=== PATIENT | male | born 1955 | race Caucasian/White ===

== ENCOUNTER 2017-09-22 10:55 | Outpatient (CLI) | payer BC | END 2017-09-22 10:56 | disposition home or self-care (01) | LOC: NS 10:55 | PROVIDERS: ATTEND Internal Medicine | DX: E11.9 Type 2 diabetes mellitus without complications (principal); Z71.3 Dietary counseling and surveillance; Z79.84 Long term (current) use of oral hypoglycemic drugs; Z68.32 Body mass index [BMI] 32.0-32.9, adult | CPT/HCPCS: 97802 ==

== ENCOUNTER 2017-10-20 10:51 | Outpatient (CLI) | payer BC | END 2017-10-20 10:52 | disposition home or self-care (01) | LOC: NS 10:51 | PROVIDERS: ATTEND Internal Medicine | DX: Z71.3 Dietary counseling and surveillance (principal); E11.9 Type 2 diabetes mellitus without complications; Z68.32 Body mass index [BMI] 32.0-32.9, adult; Z79.84 Long term (current) use of oral hypoglycemic drugs | CPT/HCPCS: 97803 ==

== ENCOUNTER 2017-12-08 11:00 | Outpatient (CLI) | payer BC | END 2017-12-08 11:01 | disposition home or self-care (01) | LOC: NS 11:00 | PROVIDERS: ATTEND Internal Medicine | DX: Z71.3 Dietary counseling and surveillance (principal); E11.9 Type 2 diabetes mellitus without complications; Z79.84 Long term (current) use of oral hypoglycemic drugs; Z68.32 Body mass index [BMI] 32.0-32.9, adult | CPT/HCPCS: 97803 ==

== ENCOUNTER 2020-04-28 13:43 | Outpatient (CLI) | payer MEDICARE ==
[2020-04-28 14:37] VITALS: BP 132/81
--- NOTE | 2020-04-28 14:37 | SLEEP CARE CONSULTATION ---
Information from patient questionnaire entered by Nena Gutierrez. I have reviewed and concur with the information entered by Nena Gutierrez. This document represents the service I personally performed and the decisions made by me, Merle Valencia ARNP. History of Present Illness Service Date and Time: 04/28/2020 1343 Reason for Visit: New patient, Previously diagnosed sleep apnea, sleep apnea on CPAP therapy Chief Complaint: reports: Other (Try to improve my use of the CPAP machine) Date of Onset: 10 years Usual bedtime: 11 pm Time it takes to fall asleep: 15 minutes Snores at night: Yes Observed to quit breathing while asleep: Yes Sleeps alone due to snoring: No Number of times waking at night: 1-2 Reasons for waking at night: reports: Other (unknown reason). denies: Choking, Snoring, Gasping for air Toss, Turn, or Twitch while sleeping: No Recalls having dreams: Yes Usually gets out of bed at: 7:30 am Feels refreshed in the morning: Yes Morning headache: No Sleepy or fatigued during the day: No Ever fallen asleep while driving: Yes Takes day naps: No Dreams during day naps: No Prior sleep studies: Yes Year and Where: [facility] in [place], [place] Additional HPI information: MADONNA PORTILLO was diagnosed to have unknown, obstructive sleep apnea-hypopnea syndrome about 10 years ago and is on CPAP therapy comes in today for initial appointment. He states that he had a similar sleep appointment (like today) in [facility] about 3 years ago. His original study was 10 years ago at [facility] in [place], [place]. He states they did two studies and set him up on CPAP therapy. - Parasomnia Symptoms Ever been unable to move upon waking from sleep: No Walks in sleep: No Talks in sleep: No Ever acted out dreams in sleep: No Ever felt weak in the knees when startled or emotional: No Bothered by creepy, crawly, restless sensations in legs: No Problems with memory or concentration: No CPAP Compliance Data - Data Reviewed with Patient Average duration of nightly device use: 5.7 Compliance rate %: 85 (180 days) Current pressure setting (cmH2O): 13-17 Average residual AHI: 0.8 Compliance data discussion: He hasn't changed the cushion mask in the last 3 years. He thinks the straps are stretched out and the mask is not sealing well. He uses a full face mask by [employer]. He cleans the mask every evening before using. He last got supplies from a place in [place] called [employer]. Subjective Patient concerns: reports: mask discomfort (not sealing well), air blowing in eyes, mask leak noise. denies: aerophagia, condensation in mask/hose, nasal congestion, dry mouth, nose, throat, epistaxis, other Observed to snore while using device: No Current pressure setting perceived as: comfortable On therapy, patient: reports: sleeping better, awakening more refreshed, being more awake and alert during the day, more rested overall. denies: drowsiness while driving Initial [place] Sleepiness Scale score: 5 (in 2019) Past Medical History Past Medical History: reports: Diabetes, GERD (history, changed his habits and it helped; few OTC Tums). denies: Hypertension, Claustrophobia, Congestive Heart Failure, Stroke, Coronary Heart Disease, Arrythmia, Hypothyroidism, Anemia, Anxiety, Impotence, Depression, Mood disorder, Attention deficit Social History The patient's occupation is a Retired. Patient is Single and lives in [place]. Have you smoked in the past 12 months: No Alcohol use: No Caffeine use: Yes Caffeine amount and frequency: 5 cups per day Family History Family history of sleep disordered breathing: Yes Family Hx Sleep Apnea: Father: Snoring Allergies and Home Medications Drug allergies reviewed: Yes (NKDA) Home medication list reviewed: Yes (Metformin) Review of Systems Weight gain over past 5 years: 19 Weight loss over past 5 years: 32 Cardiovascular: denies: high blood pressure, palpitations, chest pain, irregular heart rate or pulse, leg or foot swelling Respiratory: denies: shortness of breath, chronic cough Gastrointestinal: reports: heartburn. denies: difficulty swallowing Urinary: denies: impotence Neurological: denies: headaches, seizure, head trauma, speech dysfunction, gait or balance problems, fainting or unconsciousness Psychiatric: denies: anxiety, depression, mood disorder, claustrophobia Ear/Nose/Throat: reports: wisdom teeth removed (has two still, uppers). denies: nasal congestion, sinus problems, nose bleeds, dry mouth/throat, hoarseness, tonsillectomy Endocrine: denies: thyroid disease Musculoskeletal: reports: back pain. denies: muscle pain or cramping, mobility problems Immunologic: denies: allergies to food or environment Physical Exam Blood Pressure: 132/81 Cuff size: long Heart Rate: 64 O2 Saturation: 98 Height: 5 ft 11 in Weight: 229 lb Body Mass Index: 31.9 BMI Classification: Obese Neck circumference: 16.5 (inches) HEENT: No craniofacial malformation Nostrils: patent to airflow Turbinates: normal Septum: midline Mouth and throat: narrow oropharynx Soft palate: normal Hard palate: normal Uvula visualization: 50% Mallampati Class II Tongue: normal in size Tonsils: small Chin and jaw: normal size and position Neck: normal w/o lymphadenopathy or thyromegaly Heart: regular rate and rhythm Lungs: clear bilaterally Impression and Plan 1. Obstructive Sleep Apnea-Hypopnea Syndrome, unknown, with good treatment compliance and good apnea control. On CPAP therapy, the patient has better sleep quality and is more rested overall. The patients CPAP is over 5 years old and of reasonable use. Thus, the CPAP will be updated. A DWO prescription will be made. Compliance guidelines for new device and follow up discussed. We do not yet have the patient's original diagnostic study and I explained to patient that we will need a copy of this before his prescription for the new machine can be faxed and process. He may try to bring in a copy or obtain one and bring it into our office. If we are unable to obtain this study we may need to repeat a PSG to verify diagnosis and severity. Patient's apnea severity and rationale for treatment to reduce apnea, improve sleep quality and reduce cardiovascular and cerebrovascular events was reviewed. I also reviewed the benefit of consistent device use of CPAP for diabetes. * Continue auto CPAP pressure at 13-17 cmH2O * Obtain original study with diagnosis and severity. * Notify me if snoring with mask or feeling that the pressure is too much or too little * Attempt to lose weight * Call this office if any problems using CPAP * Return for follow up in 1 month, or sooner if concerns arise Visit Type: In Office Time Spent with Patient (minutes): 36 Provider Statement: I spent 100% of the Face to Face Visit with the patient with greater than 50% spent counseling the patient and coordination of care.
== END 2020-04-28 13:44 | disposition home or self-care (01) ==
LOC: SC 13:43
PROVIDERS: ATTEND Nurse Practitioner Family
DX: G47.33 Obstructive sleep apnea (adult) (pediatric) (principal); E66.9 Obesity, unspecified; Z68.31 Body mass index [BMI] 31.0-31.9, adult
CPT/HCPCS: 99204; G0463; 99212

== ENCOUNTER 2020-09-08 11:41 | Outpatient (CLI) | payer MEDICARE ==
--- NOTE | 2020-09-08 11:56 | SLEEP CARE CONSULTATION ---
Information from patient questionnaire entered by Nena Gutierrez. I have reviewed and concur with the information entered by Nena Gutierrez. This document represents the service I personally performed and the decisions made by , Merle Valencia ARNP. History of Present Illness Service Date and Time: 09/08/2020 1140 Previous diagnosis: Moderate, Obstructive Sleep Apnea-Hypopnea Syndrome AHI: 19.0 (in 2009) Reason for follow up: first compliance after device update Equipment type: CPAP Equipment obtained from: Other ([facility]; getting supplies as needed) Mask style: Full face Mask brand: Resmed Backup mask available: Yes (old mask) Last cushion change: 1 month Prior sleep studies: Yes Year and Where: 2009 - [facility] in [place], [place] Type of Sleep Study: Polysomnography HPI additional information: MADONNA PORTILLO was diagnosed to have moderate, AHI 19.0, obstructive sleep apnea-hypopnea syndrome and returns via Telehealth visit today for CPAP therapy first compliance with update of machine follow-up. CPAP Compliance Data - Data Reviewed with Patient Average duration of nightly device use: 6 hr 19 min Compliance rate %: 93.3 Current pressure setting (cmH2O): 13-17 Humidity settin Heated hose settin Average residual AHI: 1.2 Average large leak: 2 hr 50 min Subjective Patient concerns: denies: aerophagia, mask discomfort, air blowing in eyes, mask leak noise, condensation in mask/hose, nasal congestion, dry mouth, nose, throat, epistaxis, other Observed to snore while using device: No Current pressure setting perceived as: comfortable On therapy, patient: reports: sleeping better, awakening more refreshed, being more awake and alert during the day, more rested overall. denies: drowsiness while driving Initial [place] Sleepiness Scale score: 5 (in 2019) Current [place] Sleepiness Scale score: 1 Allergies and Home Medications Drug allergies reviewed: Yes (NKDA) Home medication list reviewed: No (increased Metformin to 1000 mg twice daily) Review of Systems Review of systems same as previous: Yes (no changes) Physical Exam Vital signs obtained and entered by: Telehealth visit to limit exposure during covid pandemic Height: 5 ft 11 in Impression and Plan 1. Obstructive Sleep Apnea-Hypopnea Syndrome, moderate, with good treatment compliance and good apnea control. On CPAP therapy, the patient has better sleep quality and is more rested overall. He is liking his new machine. It does feel like the pressure is higher at onset of putting mask on initially but he adapts quickly and does not feel the pressure is too much. He has no complaints with the mask. He likes the fit of the new full face mask and has no congestion or dryness issues. He does ask about CPAP assistant surveyor out there and I advised him to follow manufacturers directions for cleaning with mild soap and warm water. I reviewed with him that the FDA has warnings out on the CPAP assistant surveyor and is not yet recommending their use due to limited studies on their safety. Patient's apnea severity and rationale for treatment to reduce apnea, improve sleep quality and reduce cardiovascular and cerebrovascular events was reviewed. I also reviewed the benefit of consistent device use of CPAP for diabetes, and gastric reflux. * Continue autoCPAP pressure at 13-17 cmH2O * Notify me if snoring with mask or feeling that the pressure is too much or too little * Attempt to lose weight * Call this office if any problems using CPAP * Return for follow up in 1 year, or sooner if concerns arise Counseling Topics: Spare mask, Weight loss health impact Visit Type: Telehealth Video Video Type: Doximity Patient Location: Home Location of Provider: Office Patient agrees and consents to this telehealth visit type: Yes Patient agrees to have their insurance billed: Yes Time Spent with Patient (minutes): 15 Provider Statement: I spent 100% of the Telehealth Video Call with the patient with greater than 50% spent counseling the patient and coordination of care.
== END 2020-09-08 11:42 | disposition home or self-care (01) ==
LOC: SC 11:41
PROVIDERS: ATTEND Nurse Practitioner Family
DX: G47.33 Obstructive sleep apnea (adult) (pediatric) (principal)

== ENCOUNTER 2021-12-28 09:30 | Outpatient (CLI) | payer MEDICARE ==
[2021-12-28 15:55] LABS: CALCIUM 9.6 mg/dL (8.5-10.3); CREATININE 0.8 mg/dL (0.6-1.2); POTASSIUM 4.2 mmol/L (3.5-5.0)
[2021-12-28 20:08] LABS: ESTIMATED AVERAGE GLUCOSE 186 mg/dL (70-100); HEMOGLOBIN A1c% 8.1 % (4.27-6.07)
== END 2021-12-28 23:59 | disposition home or self-care (01) ==
LOC: LAB.R 09:30
PROVIDERS: ATTEND Internal Medicine
DX: E11.9 Type 2 diabetes mellitus without complications (principal); Z79.899 Other long term (current) drug therapy
CPT/HCPCS: 80048; 83036

== ENCOUNTER 2022-04-27 16:29 | Outpatient (CLI) | payer MEDICARE ==
--- NOTE | 2022-04-27 14:42 | SLEEP CARE CONSULTATION ---
Information from patient questionnaire entered by Cruz Plasencia. I have reviewed and concur with the information entered by Cruz Plasencia. This document represents the service I personally performed and the decisions made by me, Merle Valencia ARNP. History of Present Illness Service Date and Time: 04/27/2022 1420 Previous diagnosis: Moderate, Obstructive Sleep Apnea-Hypopnea Syndrome AHI: 19.0 (in 2009) Reason for follow up: annual (ANNUAL, LAST SEEN 09/10, DREAMSTATION) Equipment type: CPAP (DREAMSTATION) Equipment obtained from: Other ([facility]; getting supplies as needed) Mask style: Full face Mask brand: Resmed (AirFit F20, large) Backup mask available: Yes (old mask) Last cushion change: 1+ month Prior sleep studies: Yes Year and Where: 2009 - [facility] in [place], [place] Type of Sleep Study: Polysomnography HPI additional information: MADONNA PORTILLO was diagnosed to have moderate, AHI 19.0, obstructive sleep apnea-hypopnea syndrome and returns via video telehealth visit today for CPAP therapy annual follow-up. Sleep Study - Results Type of Sleep Study: Polysomnography Prior sleep studies: Yes Year and Where: 2009 - [facility] in [place], [place] CPAP Compliance Data - Data Reviewed with Patient Average duration of nightly device use: 6 hours, 11 minutes, 22 seconds Compliance rate %: 93.3 (01/25/22 to 04/24/22; 90/90 days) Current pressure setting (cmH2O): 13-17 Average residual AHI: 1.4 Subjective Patient concerns: reports: other (dry skin, sometimes; chafing sometimes). denies: aerophagia, mask discomfort, air blowing in eyes, mask leak noise, condensation in mask/hose, nasal congestion, dry mouth, nose, throat, epistaxis Observed to snore while using device: No Current pressure setting perceived as: comfortable On therapy, patient: reports: sleeping better, awakening more refreshed, being more awake and alert during the day, more rested overall. denies: drowsiness while driving Initial [place] Sleepiness Scale score: 5 (in 2019) Current [place] Sleepiness Scale score: 4 Allergies and Home Medications Known drug allergies: Yes Drug allergies reviewed: Yes (NKDA) Home medication list reviewed: Yes (Metformin 1000mg BID) Allergy and home medication list: Allergies No Known Drug Allergies Allergy (Verified 12/28/12 14:11) Review of Systems Review of systems same as previous: Yes (no changes) Physical Exam Vital signs obtained and entered by: VIA PHONE Height: 5 ft 11 in Weight: 222 lb (pt reported) Body Mass Index: 30.9 BMI Classification: Obese Impression and Plan 1. Obstructive Sleep Apnea-Hypopnea Syndrome, moderate, with good treatment comp liance and good apnea control. On CPAP therapy, the patient has better sleep quality and is more rested overall. Patient has been getting some dry patches of skin and "chafing" around his nose and upper cheeks. I advised him to try a barrier that he can obtain online through either [employer] or [employer]. These barriers can reduce that chafing feeling and he may also use nonoily lotion on his face to help reduce dryness. He voiced understanding and agreement. Patient's apnea severity and rationale for treatment to reduce apnea, improve sleep quality and reduce cardiovascular and cerebrovascular events was reviewed. I also reviewed the benefit of consistent device use of CPAP for diabetes and gastric reflux. 2. Obesity, unspecified. Currently patients BMI is 30.9. Obesity increases the risk of apnea, CPAP pressure requirements and overall health risks especially cardiovascular and diabetes. Thus patient is advised to lose weight. Weight loss can be done with reducing portion size, reducing refined foods and balancing content with vegetables, fruit and whole grain foods. In addition, patient encouraged to get regular exercise. The patient's CPAP pressure range should accommodate some weight loss. Symptoms to report for additional pressure adjustment discussed. * Continue auto CPAP pressure at 13-17 cmH2O * Update supplies * Notify me if snoring with mask or feeling that the pressure is too much or too little * Attempt to lose weight * Call this office if any problems using CPAP * Return for follow up in 1 year, or sooner if concerns arise Counseling Topics: Spare mask, Weight loss health impact Visit Type: Telehealth Video (EMAIL: [email or web address]) Video Type: Doximity Patient Location: Home Location of Provider: Office Patient agrees and consents to this telehealth visit type: Yes Patient agrees to have their insurance billed: Yes Time Spent with Patient (minutes): 20 Provider Statement: I spent 100% of the Telehealth Video Call with the patient with greater than 50% spent counseling the patient and coordination of care.
== END 2022-04-27 16:30 | disposition home or self-care (01) ==
LOC: SC 16:29
PROVIDERS: ATTEND Nurse Practitioner Family
DX: G47.33 Obstructive sleep apnea (adult) (pediatric) (principal); E66.9 Obesity, unspecified; Z68.30 Body mass index [BMI] 30.0-30.9, adult

== ENCOUNTER 2023-09-13 12:06 | Outpatient (CLI) | payer MEDICARE ==
--- NOTE | 2023-09-13 11:58 | SLEEP CARE CONSULTATION ---
Information from patient questionnaire entered by Marilyn David. I have reviewed and concur with the information entered by Marilyn David. This document represents the service I personally performed and the decisions made by me, Merle Valencia ARNP. History of Present Illness Service Date and Time: 09/13/2023 1140 Previous diagnosis: Moderate, Obstructive Sleep Apnea-Hypopnea Syndrome AHI: 19.0 (in 2009) Reason for follow up: annual (LAST SEEN 04/2022) Equipment type: CPAP (DREAMSTATION 2; s/u 07/28/2020) Equipment obtained from: Other ([facility]; getting supplies as ne eded) Mask style: Full face Backup mask available: Yes Last cushion change: few weeks ago Prior sleep studies: Yes Year and Where: 2009 - [facility] in [place], [place] Type of Sleep Study: Polysomnography HPI additional information: MADONNA PORTILLO was diagnosed to have moderate, AHI 19, obstructive sleep apnea- hypopnea syndrome and returns via video appointment today for CPAP therapy annual follow-up. Sleep Study - Results Type of Sleep Study: Polysomnography Prior sleep studies: Yes Year and Where: 2009 - [facility] in [place], [place] CPAP Compliance Data - Data Reviewed with Patient Average duration of nightly device use: 6 HRS 43 MINS 7 SECS Compliance rate %: 97.8 (09/11/2022-09/10/2023; 365/365 days used) Current pressure setting (cmH2O): 13-17 Average residual AHI: 1.3 Central apnea: 0.1 Obstructive apnea: 0.2 Hypopnea: 0.8 Average large leak: 14 mins 14 secs Subjective Patient concerns: reports: other (dry skin where mask touches skin; tried barriers but did not like it). denies: aerophagia, mask discomfort, air blowing in eyes, mask leak noise, condensation in mask/hose, nasal congestion, dry mouth, nose, throat, epistaxis Observed to snore while using device: No Current pressure setting perceived as: comfortable On therapy, patient: reports: sleeping better, awakening more refreshed, being more awake and alert during the day, more rested overall. denies: drowsiness while driving Initial [place] Sleepiness Scale score: 5 (in 2019) Current [place] Sleepiness Scale score: 6 (09/13/23) Allergies and Home Medications Known drug allergies: No Drug allergies reviewed: Yes Home medication list reviewed: Yes (no changes) Allergy and home medication list: Allergies No Known Drug Allergies Allergy (Verified 09/11/23 13:42) Review of Systems Review of systems same as previous: Yes (NO CHANGE) Physical Exam Vital signs obtained and entered by: MARILYN Reynoso MA Height: 5 ft 11 in (PER PT) Weight: 215 lb (PER PT) Weight change since last visit: 7 lb loss Body Mass Index: 29.9 BMI Classification: Overweight Impression and Plan 1. Obstructive Sleep Apnea-Hypopnea Syndrome, moderate, with good treatment compliance and good apnea control. On CPAP therapy, the patient has better sleep quality and is more rested overall. Patient has significant improvement of their sleep apnea and is satisfied with current CPAP therapy. Patient continues to have some skin irritation where the mask touches his face. He says the skin is dry and feels "almost like a sunburn". He tried the barriers that I suggested at his last visit and thinks they did help but says they were a hassle to use. I advised him to try again or we could change the mask style. He says he will try to use the barriers for now. He had no other concerns today. I will update his supply prescription and see him next year. Patient's apnea severity and rationale for treatment to reduce apnea, improve sleep quality and reduce cardiovascular and cerebrovascular events was reviewed. I also reviewed the benefit of consistent device use of CPAP for diabetes and gastric reflux. 2. Overweight, unspecified. Currently patients BMI is 29.9. He has lost weight. Obesity increases the risk of apnea, CPAP pressure requirements and overall health risks especially cardiovascular and diabetes. Thus patient is advised to continue to try to lose weight. * Continue auto CPAP pressure at 13-17 cmH2O * Update supply prescription * Notify me if snoring with mask or feeling that the pressure is too much or too little * Attempt to lose weight * Call this office if any problems using CPAP * Return for follow up in 12 months, or sooner if concerns arise Counseling Topics: Spare mask, Weight loss health impact Prescriptions: Device supplies Follow up with Sleep Care in: 1 year Visit Type: Telehealth Video Video Type: Doximity Patient Location: Home Location of Provider: Office Patient agrees and consents to this telehealth visit type: Yes Patient agrees to have their insurance billed: Yes Time Spent with Patient (minutes): 25 Provider Statement: I spent 100% of the Telehealth Video Call with the patient with greater than 50% spent counseling the patient and coordination of care.
== END 2023-09-13 12:07 | disposition home or self-care (01) ==
LOC: SC 12:06
PROVIDERS: ATTEND Nurse Practitioner Family
DX: G47.33 Obstructive sleep apnea (adult) (pediatric) (principal); E66.3 Overweight; Z68.29 Body mass index [BMI] 29.0-29.9, adult

== ENCOUNTER 2023-09-21 10:25 | Outpatient (CLI) | payer MEDICARE, BC ==
[2023-09-21 10:56] LABS: BASOPHILS % (AUTO) 0.2 %; EOSINOPHILS # (AUTO) 0.2 10^3/uL (0.0-0.7); EOSINOPHILS % (AUTO) 2.1 %; HCT - HEMATOCRIT 42.3 % (42.0-52.0); HGB - HEMOGLOBIN 14.7 g/dL (14.0-18.0); LYMPHOCYTES # (AUTO) 2.2 10^3/uL (1.5-3.5); LYMPHOCYTES % (AUTO) 27.4 %; MEAN CORPUSCULAR HEMOGLOBIN 30.9 pg (27.0-31.0); MEAN CORPUSCULAR HGB CONC 34.8 g/dL (32.0-36.0); MEAN CORPUSCULAR VOLUME 88.9 fL (80.0-94.0); MEAN PLATELET VOLUME 8.7 fL (7.4-11.4); MONOCYTES # (AUTO) 0.5 10^3/uL (0.0-1.0); NEUTROPHILS # (AUTO) 5.2 10^3/uL (1.5-6.6); NEUTROPHILS % (AUTO) 64.1 %; PLT - PLATELET COUNT 229 10^3/uL (130-450); RED BLOOD COUNT 4.76 10^6/uL (4.70-6.10); RED CELL DISTRIBUTION WIDTH 13.2 % (12.0-15.0); WHITE BLOOD COUNT 8.2 x10^3/uL (4.8-10.8)
[2023-09-21 11:20] LABS: ALBUMIN 4.4 g/dL (3.2-5.5); ALBUMIN/GLOBULIN RATIO 1.7 (1.0-2.2); ALKALINE PHOSPHATASE 57 IU/L (42-121); ALT ALANINE AMINOTRANSFERASE 28 IU/L (10-60); AST ASPARTATE AMINOTRANSFERASE 18 IU/L (10-42); BILIRUBIN,TOTAL 0.4 mg/dL (0.2-1.0); BUN - BLOOD UREA NITROGEN 15 mg/dL (6-20); CALCIUM 9.2 mg/dL (8.5-10.3); CARBON DIOXIDE - CO2 22 mmol/L (21-32); CHLORIDE 107 mmol/L (101-111); CHOL/HDL RATIO 3.7 (<5.0); CHOLESTEROL 170 mg/dL; CREATININE 0.8 mg/dL (0.6-1.3); GFR - MDRD 96 (>89); GLUCOSE 216 mg/dL (74-104); HDL CHOLESTEROL 46 mg/dL; LDL CHOLESTEROL,CALCULATED 84 mg/dL; LDL/HDL RATIO 1.8 (<3.6); POTASSIUM 4.2 mmol/L (3.5-4.5); SODIUM 137 mmol/L (135-145); TRIGLYCERIDES 200 mg/dL (48-352); VLDL CHOLESTEROL 40 mg/dL
[2023-09-21 11:27] LABS: CREATININE,URINE 112.5 mg/dL; MICROALBUM/CREATININE RATIO,UR 37.3 ug/mg (<30.0); MICROALBUMIN,URINE 4.2 mg/dL
[2023-09-21 11:32] LABS: THYROID STIMULATING HORMONE 1.23 uIU/mL (0.34-5.60)
[2023-09-21 11:36] LABS: ESTIMATED AVERAGE GLUCOSE 206 mg/dL (70-100); HEMOGLOBIN A1c% 8.8 % (4.27-6.07)
[2023-09-21 11:57] LABS: PSA TOTAL 1.566 ng/mL (0.000-2.000)
== END 2023-09-21 10:26 | disposition home or self-care (01) ==
LOC: LAB 10:25
PROVIDERS: ATTEND Internal Medicine
DX: Z00.00 Encounter for general adult medical examination without abnormal findings (principal); C67.9 Malignant neoplasm of bladder, unspecified; E11.9 Type 2 diabetes mellitus without complications; E78.5 Hyperlipidemia, unspecified; Z79.899 Other long term (current) drug therapy
CPT/HCPCS: 36415; 80053; 80061; 82043; 82570; 82607; 83036; 83721; 84153; 84443; 85025

== ENCOUNTER 2023-10-03 12:50 | Outpatient (CLI) | payer MEDICARE, BC ==
[2023-10-03] MEDS ORDERED: iohexoL-300 100 ML VIAL ONE (13:04)
[2023-10-03] MEDS: iohexoL-300 100 ML VIAL IVP ONE (13:29)
--- NOTE | 2023-10-03 15:45 | CT Report ---
PROCEDURE: IVP INDICATIONS: HIST OF BLADDER CA CONTRAST: Omni 300 140ml TECHNIQUE: A [address] of the abdomen and pelvis was performed. Non-contrast and contrast images were recorded and evaluated at appropriate window settings. Images were recorded and evaluated at appropriate windo w settings. Reformats: coronal and sagittal. For radiation dose reduction, the following was used: au tomated exposure control, adjustment of convex left scoliosis. 3 interval casting with improved align ment at the tibia and fibula fractures. MA and/or kV according to patient size. COMPARISON: None FINDINGS: Image quality: Diagnostic Lower chest: Basal scarring and atelectasis. Normal heart size Liver: Hepatic steatosis. Gallbladder and biliary system: Mildly distended gallbladder. No biliary ductal dilation. Pancreas: Moderate parenchymal atrophy without ductal dilation Spleen: Nonenlarged Adrenals: No discrete nodules Kidneys: Numerous renal cysts and subcentimeter lesions are present. In the right posterior interpola r region, there is a 1.4 cm lesion with indeterminate attenuation and minimal enhancement versus pseu doenhancement. (). Nonobstructing right lower pole punctate calculus. No ureter filling defects. No hydronephrosis. Vessels and lymph nodes: Main portal vein is patent. No abdominal aortic aneurysm. There are atherosc lerotic calcifications. Ectatic right common iliac artery measuring about 2.2 cm. No pathologic lymph nodes by size criteria. Bowel and peritoneum: No evidence of small bowel obstruction. Moderate to large fecal loading. No pat hologic ascites. Body wall: Tiny fat-containing umbilical hernia. Pelvis: There is contrast within the bladder. Prostate is not well assessed on this study. Heterogene ous enhancement is seen likely associated with BPH, consider PSA correlation if indicated. Bones: No acute or suspicious osseous finding. Degenerative changes. IMPRESSION: No hydronephrosis. No definite ureter filling defect or solid renal mass. In the right posterior kidney, there is a 1.4 cm lesion with indeterminate attenuation and possible a rtifactual pseudoenhancement. In the provided clinical history of malignancy, follow-up CT is recomme nded. The lower tracts could be better evaluated with cystoscopy. Other findings as above. Reviewed by: Rk Daly MD on 10/03/2023 3:44 PM PST Approved by: Rk Daly MD on 10/03/2023 3:44 PM PST Station ID: [id number]
== END 2023-10-03 12:51 | disposition home or self-care (01) ==
LOC: DI 12:50
PROVIDERS: ATTEND Urology
DX: Z85.51 Personal history of malignant neoplasm of bladder (principal); R93.421 Abnormal radiologic findings on diagnostic imaging of right kidney
CPT/HCPCS: 74178; Q9967